=== PATIENT | male | born 1975 | race Caucasian/White ===

== ENCOUNTER 2025-02-13 00:46 | Emergency (ER) | payer OTHER ==
[~2025-02-13] VITALS: Ht 170.2 cm; Wt 91.0 kg
[2025-02-13 00:50] VITALS: O2SAT 99
[2025-02-13] MEDS: MORPHINE SULFATE 4 MG/ML INJ (FOR IV/IM USE) IV ONE (01:29)
[2025-02-13] MEDS: SODIUM CHLORIDE 0.9% 2,000 ML IV ONE (01:30)
[2025-02-13] MEDS: ONDANSETRON HCL 4MG/2ML INJ IV ONE (01:30)
[2025-02-13] MEDS: KETOROLAC 15MG/ML VIAL IV ONE (01:32)
[2025-02-13 01:38] LABS: BASOPHILS % 0.8 % (0.0-2.0); EOSINOPHILS % 0.2 % (0.0-5.0); HEMATOCRIT. 45.5 % (42.0-52.0); HEMOGLOBIN. 15.2 g/dL (14.0-18.0); LYMPHOCYTES % 20.4 % (20.0-50.0); MEAN PLATELET VOLUME 10.1 fl (7.4-10.4); MONOCYTES % 3.8 % (2.0-8.0); NEUTROPHILS % 74.8 % (40.0-76.0); PLATELET 270 x1000/uL (130-400); RED BLOOD CELL COUNT 4.81 mill/uL (4.7-6.1); RED CELL DISTRIBUTION WIDTH 13.8 % (11.6-14.6)
[2025-02-13 01:43] LABS: CREATININE 1.0 mg/dL (0.6-1.3); UREA NITROGEN BLOOD 7 mg/dL (9-23)
[2025-02-13 01:45] LABS: ASPARTATE AMINOTRANSFERASE 28 IU/L (<34); BILIRUBIN DIRECT < 0.1 mg/dL (<=3.0)
[2025-02-13 01:46] LABS: BILIRUBIN TOTAL 0.3 mg/dL (0.1-1.0); PROTEIN TOTAL 7.7 g/dL (6.0-8.3)
[2025-02-13 02:34] LABS: CLARITY URINE CLEAR (CLEAR); COLOR URINE YELLOW (YELLOW); GLUCOSE URINE 3+ (NEGATIVE); KETONES URINE TRACE (NEGATIVE); LEUKOCYTE ESTERASE URINE NEGATIVE (NEGATIVE); NITRITE URINE NEGATIVE (NEGATIVE); OCCULT BLOOD URINE NEGATIVE (NEGATIVE); PH URINE 5.5 (4.5-8.0); PROTEIN URINE NEGATIVE (NEGATIVE); SPECIFIC GRAVITY URINE 1.014 (1.005-1.030); UROBILINOGEN URINE 0.2 E.U./dL (0.2-1.0)
[2025-02-13 02:37] LABS: RBC URINE NONE SEEN /hpf (0-2); WBC URINE 0-2 /hpf (0-2)
[2025-02-13 02:38] LABS: BACTERIA URINE TRACE; SQUAMOUS EPITHELIAL CELL URINE NONE SEEN /lpf (RARE/1+)
[2025-02-13 03:04] LABS: *AMPHETAMINES SCREEN URINE NEGATIVE (NEGATIVE); *BARBITURATES SCREEN URINE NEGATIVE (NEGATIVE); *BENZODIAZEPINES SCREEN URINE NEGATIVE (NEGATIVE); *COCAINE SCREEN URINE NEGATIVE (NEGATIVE); METHADONE URINE SCREEN NEGATIVE (NEGATIVE); OPIATES URINE SCREEN NEGATIVE (NEGATIVE)
[2025-02-13 03:05] LABS: CANNABINOID URINE SCREEN PRESUMPTIVE POSITIVE (NEGATIVE); ECSTASY MDMA SCREEN URINE NEGATIVE (NEGATIVE); PHENCYCLIDINE URINE SCREEN NEGATIVE (NEGATIVE)
[2025-02-13] MEDS ORDERED: TAMS-54 MT (04:09)
[2025-02-13 04:26] VITALS: BP 153/92; PULSE 80; RESP 18; TEMP 36.9; O2SAT 100
== END 2025-02-13 04:39 | disposition home or self-care (01) ==
LOC: ER 01:08
DX: R33.9 Retention of urine, unspecified (principal); Z46.6 Encounter for fitting and adjustment of urinary device; Z79.899 Other long term (current) drug therapy
CPT/HCPCS: 80076; 80305; 80048; 81003; 80320; 83690; 85025; 36415; 74176; 51702; 96361; 96374; 96375; 99285; J1885; J2405; J2270; J7030; G0480

== ENCOUNTER 2025-02-13 15:23 | Emergency (ER) | payer OTHER ==
[~2025-02-13] VITALS: Ht 172.7 cm; Wt 82.0 kg
[~2025-02-13 15:23] MED LIST: TAMS-54 MT
[2025-02-13 16:03] VITALS: BP 149/97; TEMP 37.1; O2SAT 99
[2025-02-13 16:04] VITALS: PULSE 96; RESP 18; O2SAT 99
== END 2025-02-13 19:40 | disposition home or self-care (01) ==
LOC: ER 15:23
DX: Z46.6 Encounter for fitting and adjustment of urinary device (principal); F12.90 Cannabis use, unspecified, uncomplicated
CPT/HCPCS: 99282